=== PATIENT | male | born 1990 | race African-American/Black ===

== ENCOUNTER 2019-12-13 20:17 | Emergency (ER) | payer OTHER, SELFPAY ==
[2019-12-13] VITALS (8 sets, daily range): BP systolic 129–147; BP diastolic 76–109; PULSE 83–99; RESP 15–24; TEMP 36.5–37.5; O2SAT 99–100
--- NOTE | ~2019-12-13 | XR_ITS ---
EXAMINATION: XR shoulder RT min 2V INDICATION: Pain after fall, possible dislocation TECHNIQUE: Two views of the right shoulder are submitted. COMPARISON: None FINDINGS: There is anterior and inferior dislocation of the right humeral head with respect to the gl enoid. No fracture is identified. The acromioclavicular joint is normal. Soft tissues are unremarkabl e. IMPRESSION: Anterior and inferior dislocation of the right humeral head with respect to the glenoid. Reviewed, dictated and finalized at location A.
--- NOTE | ~2019-12-13 | XR_ITS ---
EXAMINATION: XR shoulder RT min 2V INDICATION: Post reduction of the right shoulder TECHNIQUE: Two views of the right shoulder are submitted. COMPARISON: 2106 hours FINDINGS: The humeral head dislocation has been reduced. Alignment is anatomic. No fracture is identi fied. Glenohumeral and acromioclavicular joint spaces are normal. Soft tissues are unremarkable. IMPRESSION: Reduced shoulder dislocation. Reviewed, dictated and finalized at location A.
--- NOTE | 2019-12-13 21:19 | ED.GENADULT ---
HPI - General Adult General Chief complaint: Extremity Injury, Upper Stated complaint: poss shoulder dislocation Time Seen by Provider: 12/13/19 20:57 Source: patient Mode of arrival: ambulatory Limitations: no limitations History of Present Illness HPI narrative: Patient is a 29 y/o male complaining of right shoulder pain after he fell out of truck. He states that he was attempting to get of a truck and fell accidentally. He states that his pain is sharp and throbbing and it's worsened by movement. There is no pain radiation. He denies hitting his head or passing out. He also noticed abrasion to his left leg. Related Data Allergies Allergy/AdvReac Type Severity Reaction Status Date / Time No Known Allergies Allergy Verified 12/13/19 20:22 Review of Systems Constitutional: Constitutional: Denies chills, Denies fever(s), Denies headache(s) and Denies weakness Eyes: Eyes: Denies blurry vision ENT: Denies headache(s) and Denies neck pain Cardiovascular: Cardiovascular: Denies chest pain and Denies dyspnea Respiratory: Respiratory: Denies cough and Denies dyspnea Gastrointestinal: Gastrointestinal: Denies abdominal pain, Denies diarrhea, Denies nausea and Denies vomiting Genitourinary: Genitourinary: Denies hematuria and Denies dysuria Musculoskeletal: Musculoskeletal: Denies back pain, Reports arthralgias (right shoulder pain) and Denies neck pain Neurologic: Denies headache(s) and Denies weakness Exam Const: General: no acute distress and well developed Orientation/consciousness: oriented to person, oriented to place, oriented to time and patient oriented x3 HENMT: Head: normocephalic Ears: external ears normal General nose exam: Normal external nose present Eyes: General: appearance normal, both eyes and all related structures Conjunctivae: conjunctivae normal Neck: Neck: normal visual inspection and full ROM Chest: Chest palpation & inspection: normal inspection of the chest and no tenderness Resp: Effort & Inspection: normal respiratory effort Auscultation: clear to auscultation bilaterally Cardio: Rate: regular rate Rhythm: regular rhythm GI: GI Palp: No abdominal tenderness and Yes Soft to palpation Skin: General skin exam: normal color and turgor normal Neuro: General: oriented to person, oriented to place, oriented to time and patient oriented x3 Cognition (Neuro): normal cognition Extrem: General: normal to inspection, full ROM and no pedal edema Right upper extremity: shoulder/upper arm tenderness, abnormal ROM pain with active ROM and deformity Psych: Appearance: grossly normal Mental Status: mental status grossly normal Affect: normal affect Course Vital Signs Vital signs: Vital Signs Temperature 37.5 C 12/13/19 20:15 Pulse Rate 99 12/13/19 20:15 Respiratory Rate 20 12/13/19 20:15 Blood Pressure 136/89 12/13/19 20:15 Pulse Oximetry 100 12/13/19 20:15 Temperature 36.7 C 12/13/19 22:27 Pulse Rate 91 12/13/19 22:27 Respiratory Rate 15 12/13/19 22:27 Blood Pressure 134/76 12/13/19 22:27 Pulse Oximetry 99 12/13/19 22:27 Procedures Orthopedic Joint Reduction Joint #1: Orthopedic Joint Reduction Date: 12/13/19 Orthopedic Joint Reduction Time: 22:00 Time Out Performed: Yes Side: right Joint Reduction Location: shoulder Analgesia: procedural sedation Pre-Procedure Neuro Vascular Exam: normal Shoulder Technique Used (if applicable): traction/counter-traction Technique used: traction/counter-traction Post-reduction neuro exam: intact Post-reduction vascular: intact Post Reduction X-Ray Obtained: Yes Post Reduction X-Ray Results: reduced Procedural Sedation Procedural Sedation #1: Procedural Sedation Date: 12/13/19 Procedural Sedation Time: 22:00 Presedation Evaluation: right shoulder dislocation Procedure: closed shoulder reduction Provid
--- NOTE | 2019-12-14 06:54 | PC.NURSE ---
administered le at 2152.
== END 2019-12-13 23:16 | disposition home or self-care (01) ==
PROVIDERS: Emergency Provider Emergency Medicine
DX: S43.014A Anterior dislocation of right humerus, initial encounter (principal); W17.89XA Other fall from one level to another, initial encounter
CPT/HCPCS: 23650; 73030; 96374; 99285; J2704; J3010